=== PATIENT | male | born 1955 | race Caucasian/White ===

== ENCOUNTER → 2016-09-17 | Outpatient (CLI) | payer BC ==
[2016-09-17 14:09] LABS: ANION GAP 12 (5-19); BLOOD UREA NITROGEN 13 mg/dL (7-20); CALCIUM 9.7 mg/dL (8.4-10.2); CARBON DIOXIDE 26 mmol/L (22-30); CHLORIDE 103 mmol/L (98-107); CREATININE RESULT 0.93 mg/dL (0.52-1.25); GLUCOSE 80 mg/dL (75-110); MAGNESIUM 1.9 mg/dL (1.6-2.3); POTASSIUM 4.5 mmol/L (3.6-5.0); SODIUM 141.1 mmol/L (137-145)
== END ==
LOC: OD 13:15
PROVIDERS: ATTEND Internal Medicine Cardiovascular Disease
DX: Z79.899 Other long term (current) drug therapy (principal)
CPT/HCPCS: 36415; 80048; 83735

== ENCOUNTER → 2016-11-12 | Outpatient (CLI) | payer BC ==
[2016-11-12 11:31] LABS: THYROID STIMULATING HORMONE 2.75 uIU/mL (0.47-4.68)
== END ==
LOC: OD 09:40
PROVIDERS: ATTEND Internal Medicine Cardiovascular Disease
DX: I48.1 Persistent atrial fibrillation (principal)
CPT/HCPCS: 36415; 84439; 84443

== ENCOUNTER 2017-12-14 09:23 | Emergency (ER) | payer BC ==
[2017-12-14 09:44] VITALS: BP 125/83
--- NOTE | 2017-12-14 10:27 | ER Document Report ---
ED Medical Screen (RME) - General Chief Complaint: Abnormal Lab Results Stated Complaint: POSSIBLE C DIFF Time Seen by Provider: 12/14/17 10:13 Mode of Arrival: Ambulatory Information source: Patient TRAVEL OUTSIDE OF THE [place] IN LAST 30 DAYS: No - HPI Onset: Last week Onset/Duration: Gradual Quality of pain: Cramping Severity: Mild Associated Symptoms: Diarrhea. denies: Chills, Fever Exacerbated by: Denies Relieved by: Denies Similar symptoms previously: No Recently seen / treated by doctor: Yes - 2 DAYS AGO, PCP TOOK SPECIMEN FOR C. DIFF Notes: 12/14/17 10:22 POSITIVE C. DIFF. REPORTED THIS A.M. - Related Data Smoking: Non-smoker Frequency of alcohol use: Occasional Drug Abuse: None Allergies/Adverse Reactions: No Known Allergies Allergy (Verified 12/14/17 09:27) Home Medications: lisinopril, zocor, vitamin D3 Past Medical History - General Information source: Patient - Social History Chew tobacco use (# tins/day): No Frequency of alcohol use: Occasional Drug Abuse: None Lives with: Spouse/Significant other Family history: Reviewed & Not Pertinent - Past Medical History Cardiac Medical History: Reports: Hx Hypercholesterolemia, Hx Hypertension Pulmonary Medical History: Reports: None Neurological Medical History: Reports: None Endocrine Medical History: Reports: None Renal/ Medical History: Reports: None. Denies: Hx Peritoneal Dialysis Malignancy Medical History: Reports None GI Medical History: Reports: None Musculoskeltal Medical History: Reports None Psychiatric Medical History: Reports: None Past Surgical History: Reports: Hx Orthopedic Surgery - bilateral hand repair secondary to injury. Denies: Hx Abdominal Surgery - Immunizations Hx Diphtheria, Pertussis, Tetanus Vaccination: Yes Review of Systems - Review of Systems Constitutional: No symptoms reported EENT: No symptoms reported Cardiovascular: No symptoms reported Respiratory: No symptoms reported Gastrointestinal: See HPI Genitourinary: No symptoms reported Musculoskeletal: No symptoms reported Skin: No symptoms reported Neurological/Psychological: No symptoms reported Physical Exam - Vital signs Vitals: Temp Pulse Resp BP Pulse Ox 98.4 F 82 18 125/83 98 12/14/17 09:43 12/14/17 09:43 12/14/17 09:43 12/14/17 09:43 12/14/17 09:43 Interpretation: Normal. No: Tachycardic, Tachypneic, Febrile - General General appearance: Appears well, Alert In distress: None - HEENT Head: Normocephalic Eyes: Normal Conjunctiva: Normal Ears: Normal Nasal: Normal Mouth/Lips: Normal Mucous membranes: Normal, Moist - Respiratory Respiratory status: No respiratory distress - Cardiovascular Rhythm: Regular - Abdominal Inspection: Normal Distension: No distension - Extremities General upper extremity: Normal inspection General lower extremity: Normal inspection - Neurological Neuro grossly intact: Yes Cognition: Normal Orientation: AAOx4 - Psychological Associated symptoms: Normal affect, Normal mood - Skin Skin Temperature: Warm Skin Moisture: Dry Skin Color: Normal Skin Turgor: Elastic Course - Vital Signs Vital signs: Temp Pulse Resp BP Pulse Ox 98.4 F 82 18 125/83 98 12/14/17 09:43 12/14/17 09:43 12/14/17 09:43 12/14/17 09:43 12/14/17 09:43 Doctor's Discharge - Discharge Clinical Impression: Clostridium difficile colitis Condition: Stable Disposition: HOME, SELF-CARE Instructions: C. (Clostridium) Difficile Infection ([facility]), Metronidazole ([facility]) Additional Instructions: TAKE FLAGYL (METRONIDAZOLE) DIRECTED. FOLLOW UP WIT YOUR PRIMARY CARE PROVIDER OR RETURN TO E.R. IF YOUR GET WORSE IN ANY WAY, ANY TIME. Prescriptions: Metronidazole [Flagyl 500 mg Tablet] 500 mg PO TID #30 tablet
== END 2017-12-14 10:34 | disposition home or self-care (01) ==
LOC: ER 09:23
DX: A04.72 Enterocolitis due to Clostridium difficile, not specified as recurrent (principal); I10 Essential (primary) hypertension
CPT/HCPCS: 99283

== ENCOUNTER 2018-06-07 09:50 | Emergency (ER) | payer OTHER, BC ==
[2018-06-07 10:02] VITALS: BP 120/80
--- NOTE | 2018-06-07 10:09 | ER Document Report ---
HPI - HPI Patient complains to provider of: worsening back pain Onset: Other - tuesday Pain Level: 5 Context: 63-year-old male complaining of worsening low back pain since he did a lot of yard work on Tuesday. He saw his primary care doctor yesterday and they treated him with ketorolac 10 mg Toradol injection and Ultram. He is scheduled for an MRI today but since the pain got a lot worse and he came to the ER. He has chronic intermittent low back pain twinges about twice a year since he had an MRI in 2006 which showed multilevel discogenic disease and degenerative changes with potentially significant findings at the L3-L4 level. This was after a fall 10 years ago. He gets constipated if he takes any opiates though he needs something stronger for pain. No saddle anesthesia or radiculopathy. But he is concerned that his normal right-sided low back pain is now radiating a little bit towards the left with a burning sensation. No fever or chills. Associated Symptoms: None Exacerbated by: Movement Relieved by: Denies Similar symptoms previously: Yes Recently seen / treated by doctor: Yes - ROS ROS below otherwise negative: Yes Systems Reviewed and Negative: Yes All other systems reviewed and negative Past Medical History - General Information source: Patient - Social History Smoking Status: Never Smoker Lives with: Spouse/Significant other Family History: Reviewed & Not Pertinent - Past Medical History Cardiac Medical History: Reports: Hx Hypercholesterolemia, Hx Hypertension Past Surgical History: Reports: Hx Orthopedic Surgery - bilateral hand repair secondary to injury - Immunizations Hx Diphtheria, Pertussis, Tetanus Vaccination: Yes Vertical Provider Document - CONSTITUTIONAL Agree With Documented VS: Yes Exam Limitations: No Limitations General Appearance: No Apparent Distress - INFECTION CONTROL TRAVEL OUTSIDE OF THE [place] IN LAST 30 DAYS: No - NECK Neck: Supple - GI/ABDOMEN Gastrointestinal: Abdomen Soft, Abdomen Non-Tender - BACK Back: Normal Inspection - MUSCULOSKELETAL/EXTREMETIES Musculoskeletal/Extremeties: MAEW, FROM, Tender - right SI joint area Notes: Movement of his any movement of his back or right leg causes him to jerk and spasm with pain - NEURO Level of Consciousness: Alert Motor/Sensory: No Motor Deficit, No Sensory Deficit Deep Tendon Reflexes: 2+ - Bilateral ankle and patellar - DERM Integumentary: No Rash Course - Re-evaluation Re-evalutation: 06/07/18 10:36 MRI l spine with contrast that he has a copy of showed herniation of disc thro inferior end plates of L1, superior end plates l2-l3. mild left neural foraminal stenosis and moderate to severe right neural foraminal stenosis., likely contact with the existing right L3 nerve root. 06/07/18 pain is decreased and is able to move more. got up from the bed and ambulated, will head to get his MR ordered by [facility]. - Vital Signs Vital signs: Temp Pulse Resp BP Pulse Ox 97.7 F 85 18 120/80 98 06/07/18 09:58 06/07/18 09:58 06/07/18 09:58 06/07/18 09:58 06/07/18 09:58 Discharge - Discharge Clinical Impression: exacerbation of chronic low back pain Condition: Good Disposition: HOME, SELF-CARE Instructions: Oral Narcotic Medication ([facility]), Warm Packs ([facility]) Additional Instructions: warm compress lidocaine patch for painful area [id number] stool softener 2 or 3 times a day 1 capful of MiraLAX with 8 ounces of liquid to prevent constipation with the pain medication See room any worsening of the symptoms Prescriptions: Oxycodone HCl/Acetaminophen [Percocet 10-325 Mg Tablet] 1 each PO Q4HP PRN #20 tablet PRN Reason: Forms: Return to Work
[2018-06-07] MEDS ORDERED: HYDROMORPHONE HCL INJ/PF 2 MG/ML AMPULE IM ONE (10:29)
[2018-06-07] MEDS ORDERED: ONDANSETRON 4 MG TAB.RAPDIS PO ONE (10:29)
== END 2018-06-07 11:42 | disposition home or self-care (01) ==
LOC: ER 09:50
DX: M54.5 Low back pain (principal); G89.29 Other chronic pain; Z79.899 Other long term (current) drug therapy; I10 Essential (primary) hypertension
CPT/HCPCS: 99283; 96372; S0119; J1170